=== PATIENT | female | born 1980 | race American Indian/Alaskan Native ===

== ENCOUNTER 2017-01-13 11:08 | Emergency (ER) | payer OTHER ==
[2017-01-13 11:11] VITALS: RESP 18; TEMP 98.5; O2SAT 100
--- NOTE | 2017-01-13 11:14 | ED PDOC ---
HPI: Abdomen Time Seen by Provider: 01/13/17 11:13 Chief Complaint (Provider): abdominal pain History Per: Patient Additional Complaint(s): 36-year-old female presents to emergency department for evaluation of right flank pain radiating to right lower quadrant 1.5 weeks. Patient was seen by [facility] doctor today and sent to ED for further evaluation. Patient states pain does occasionally radiate down her right leg posteriorly. She states that she has taken Aleve and Motrin in the past week which has helped the pain. Patient denies any dysuria or hematuria, no nausea, vomiting, diarrhea or constipation. Patient denies any vaginal discharge or vaginal bleeding and she denies any concern for STDs. Patient states she had full battery of STD testing done at the end of November at clinic. Patient rates current pain as 6/10. No fever or chills. Past Medical History Reviewed: Historical Data, Nursing Documentation, Vital Signs Vital Signs: Last Vital Signs Temp 98.5 F 01/13/17 11:10 Pulse 65 01/13/17 11:10 Resp 18 01/13/17 11:10 BP 127/70 01/13/17 11:10 Pulse Ox 100 01/13/17 15:07 - Medical History PMH: No Chronic Diseases - Surgical History Other surgeries: left knee surgery - Family History Family History: States: No Known Family Hx - Living Arrangements Living Arrangements: With Family - Social History Current smoker - smoking cessation education provided: No Alcohol: None Drugs: Denies - Home Medications Home Medications: Ambulatory Orders Medication Instructions Recorded Naproxen [Naprosyn] 500 mg PO BID #20 tab 01/13/17 - Allergies Allergies/Adverse Reactions: Allergies Allergy/AdvReac Type Severity Reaction Status Date / Time No Known Allergies Allergy Verified 01/13/17 11:19 Review of Systems ROS Statement: Except As Marked, All Systems Reviewed And Found Negative Constitutional: Negative for: Fever, Chills Cardiovascular: Negative for: Chest Pain Respiratory: Negative for: Cough Gastrointestinal: Positive for: Abdominal Pain (right lower quadrant). Negative for: Nausea, Vomiting Genitourinary Female: Positive for: Pelvic Pain (right side). Negative for: Dysuria, Frequency, Incontinence, Hematuria, Vaginal Discharge, Vaginal Bleeding Musculoskeletal: Positive for: Back Pain (right flank) Physical Exam - Reviewed Nursing Documentation Reviewed: Yes Vital Signs Reviewed: Yes - Physical Exam Appears: Positive for: Well, Non-toxic, No Acute Distress Skin: Negative for: Rash Eye Exam: Positive for: Normal appearance, EOMI, PERRL Cardiovascular/Chest: Positive for: Regular Rate, Rhythm Respiratory: Positive for: Normal Breath Sounds Gastrointestinal/Abdominal: Positive for: Tenderness (mild tenderness right pelvic region with likely palpable fibroids, ne rebound or guarding) Back: Positive for: R CVA Tenderness (mild). Negative for: L CVA Tenderness, Vertebral Tenderness Extremity: Positive for: Normal ROM, Other (negative bilateral straight leg raise) Neurologic/Psych: Positive for: Alert, Oriented - Laboratory Results Result Diagrams: 01/13/17 11:38 01/13/17 11:38 Urine POC: Negative Urine dip results: Negative for: Leukocyte Esterase, Blood, Nitrate, Ketones, Glucose, Bilirubin, Protein - ECG O2 Sat by Pulse Oximetry: 100 Pulse Ox Interpretation: Normal - Other Rad Pelvis US X-Ray: Read By Radiologist X-Ray Interpretation: see below Renal US X-Ray: Read By Radiologist X-Ray Interpretation: no acute finding Medical Decision Making Medical Decision Makin36 year old female with right flank pain and right lower quadrant abdominal pain , sent by clinic. Plan: Urine test Urine dip CBC CMP Renal US Pelvic US IVF IV toradol Pelvis US: IMPRESSION: Heterogeneous appearance of the uterus with evidence of multiple probable uterine fibroids. Largest presumed fibroid measures approximately 9 cm appears pedunculated and extends into the right adnexal region. Evidence of bilateral ovarian cysts measuring up to 5.0 cm. The endometrium is not visualized. Renal US: no acute finding 3:00 pm: patient feels better but still has some pain rated as 5/10, additional 15 mg IV toradol given which provided more adequate pain relief. Patient aware of all diagnostic testing results, all questions answered. I spoke with Dr. Tang, resident at clinic who states that she was able to arrange follow up appt for patient for January 21 and women[facility] clinic. Will d/c with naprosyn for pain control. Patient was advised to take meds as directed as needed for pain and is aware she can return to ED any time if acutely worse, otherwise she was advised to follow up as scheduled with clinic next week. Disposition - Clinical Impression Clinical Impression: Fibroids, Ovarian cyst - Patient ED Disposition Is Patient to be Admitted: No Counseled Patient/Family Regarding: Studies Performed, Diagnosis, Need For Followup, Rx Given - Disposition Referrals: [facility] [Outside] Disposition: Routine/Home Disposition Time: 15:04 Condition: STABLE Additional Instructions: Take prescription meds as directed as needed for pain. Follow-up as scheduled next week with women's clinic. Prescriptions: Naproxen [Naprosyn] 500 mg PO BID #20 tab Instructions: Ovarian Cyst (ED), Uterine Fibroids (ED) Forms: [facility] ED School/Work Excuse Results - Lab Results Lab Results: 01/13/17 01/13/17 11:38 11:38 WBC 4.6 L RBC 4.19 Hgb 10.7 L Hct 33.8 L MCV 80.5 L MCH 25.5 L MCHC 31.7 L RDW 17.3 H Plt Count 236 MPV 7.6 Neut % (Auto) 51.3 Lymph % (Auto) 30.1 [place] % (Auto) 15.8 H Eos % (Auto) 2.4 Baso % (Auto) 0.4 Neut # 2.3 Lymph # 1.4 [place] # 0.7 Eos # 0.1 Baso # 0.0 Sodium 139 Potassium 3.7 Chloride 105 Carbon Dioxide 25 Anion Gap 13 BUN 8 Creatinine 0.8 Est GFR ( Amer) > 60 Est GFR (Non-Af Amer) > 60 Random Glucose 91 Calcium 9.0 Total Bilirubin 0.2 AST 27 ALT 25 Alkaline Phosphatase 39 Total Protein 7.2 Albumin 4.0 Globulin 3.2 Albumin/Globulin Ratio 1.3
[2017-01-13] MEDS ORDERED: Sodium Chloride 0.9% 1,000 ML IV STA (11:23)
[2017-01-13 11:49] LABS: BASO % 0.4 % (0.0-2.0); EOS # 0.1 K/uL (0.0-0.7); EOS % 2.4 % (0.0-4.0); HEMATOCRIT 33.8 % (34.0-47.0); LYMPH # 1.4 K/uL (1.0-4.3); LYMPH % 30.1 % (20.0-40.0); MEAN CELL VOLUME 80.5 fl (81.0-99.0); MEAN CORPUSCULAR HEMOGLOBIN 25.5 pg (27.0-31.0); MEAN CORPUSCULAR HGB CONC 31.7 g/dL (33.0-37.0); MEAN PLATELET VOLUME 7.6 fl (7.2-11.7); MONO # 0.7 K/uL (0.0-0.8); MONO % 15.8 % (0.0-10.0); NEUT # 2.3 K/uL (1.8-7.0); NEUT % 51.3 % (50.0-75.0); NRBC % 0.2 % (0.0-0.0); RED CELL DISTRIBUTION WIDTH 17.3 % (11.5-14.5); WHITE BLOOD COUNT 4.6 K/uL (4.8-10.8)
[2017-01-13 12:08] LABS: ALB/GLOB RATIO 1.3 (1.0-2.1); ALKALINE PHOSPHATASE 39 U/L (38-126); ALT/SGPT 25 U/L (9-52); AST/SGOT 27 U/L (14-36); BILIRUBIN,TOTAL 0.2 mg/dl (0.2-1.3); BLOOD UREA NITROGEN 8 mg/dl (7-17); CARBON DIOXIDE 25 mmol/L (22-30); CHLORIDE 105 mmol/L (98-107); GFR AFRICAN-AMERICAN > 60; GLUCOSE,RANDOM 91 mg/dL (65-105); POTASSIUM 3.7 MMOL/L (3.6-5.0); SODIUM 139 mmol/l (132-148); TOTAL PROTEIN 7.2 G/DL (6.3-8.2)
--- NOTE | 2017-01-13 14:22 | US ---
HISTORY: pelvic pain, assess for fibroid COMPARISON: None available. TECHNIQUE: Transabdominal pelvic ultrasound FINDINGS: UTERUS: Measures approximately 13.5 x 7.1 x 9.7 cm. Anteverted. Heterogeneous uterine echotexture. Numerous probable uterine fibroids. Fibroids identified measure maximally approximately 3.5 cm, 3.1 cm, 3.4 cm, and an additional pedunculated probable fibroid extending into the right adnexal region measures approximately 9.0 x 7.6 x 7.1 cm. ENDOMETRIUM: Not visualized, presumably obscured by multiple fibroids. CERVIX: No cervical abnormality identified. RIGHT OVARY: Measures 10.6 x 4.2 x 9.2 cm. Blood flow is demonstrated. Two probable anechoic avascular lesions compatible with cysts measuring approximately 4.7 cm and 5 cm. LEFT OVARY: Measures 3.8 x 2.2 x 3.1 cm. Blood flow is demonstrated. Avascular anechoic lesion compatible with a cyst measures approximately 2.6 cm. FREE FLUID: No significant free fluid noted. OTHER FINDINGS: None. IMPRESSION: Heterogeneous appearance of the uterus with evidence of multiple probable uterine fibroids. Largest presumed fibroid measures approximately 9 cm appears pedunculated and extends into the right adnexal region. Evidence of bilateral ovarian cysts measuring up to 5.0 cm. The endometrium is not visualized.
--- NOTE | 2017-01-13 14:24 | US ---
PROCEDURE: Ultrasound of the Kidneys HISTORY: right side flank pain COMPARISON: None available. TECHNIQUE: Sonogram of the kidneys. FINDINGS: RIGHT KIDNEY: Measures: 9.9 x 4.6 x 5.3 cm. No obstructing calculus, hydronephrosis, or renal cyst identified. LEFT KIDNEY: Measures: 9.6 x 5.1 x 5.0 cm. No obstructing calculus, hydronephrosis, or renal cyst identified. OTHER FINDINGS: None. IMPRESSION: Unremarkable renal sonogram as above.
[2017-01-13 15:33] VITALS: BP 134/89; PULSE 78
== END 2017-01-13 15:25 | disposition home or self-care (01) ==
LOC: H.ER 11:08
DX: N83.201 Unspecified ovarian cyst, right side (principal); D25.9 Leiomyoma of uterus, unspecified; R10.2 Pelvic and perineal pain

== ENCOUNTER 2017-04-27 06:58 | Inpatient (IN) | payer OTHER ==
[2017-04-22 11:50] VITALS: BMI 31.2
[2017-04-27] MEDS ORDERED: Lactated Ringer's 1,000 ML IV ONE ×5 (07:00→11:30)
[2017-04-27] MEDS ORDERED: Propofol 10 mg/ml Inj (20 ML) ONE (07:07)
[2017-04-27] MEDS ORDERED: Succinylcholine 200 mg/10 ml Inj IV ONE (07:08)
[2017-04-27] MEDS ORDERED: ePHEDrine 50 mg/ml Inj ONE (07:08)
[2017-04-27] MEDS ORDERED: Rocuronium 10 mg/ml (5 ml) ONE ×2 (07:08→09:21)
[2017-04-27] MEDS ORDERED: Lidocaine 2% MPF (5 ml) Inj ONE (07:14)
[2017-04-27] MEDS ORDERED: ceFAZolin 2 GM in Sodium Chloride 0.9% 100 ML IVPB ONE ×3 (07:16→21:00)
--- NOTE | 2017-04-27 07:25 | CP.PCM.HP ---
Addendum entered and electronically signed by Elizabeth Christina MD 04/27/17 08:01 : Correction: Procedure that will be preformed today is Abdominal Myomectomy and Cystectomy Original Note: History of Present Illness - History of Present Illness History of Present Illness: 36 y/o female with history of uterine fibroid and anemia is here today for an abdominal myomectomy. Patient has been NPO since 9pm last night, has not taken any medications since then. - Patients largest fibroid on MRI shows 7.7 x 11.8 x 9.3 - Second largest is 5.2 cm - Third largest is 5.1cm - Patient also has a history of ovarian cysts - Risks and benefits have been discussed with the patient. Patient was seen in the clinic and consent has been signed. Patient has been given the opportunity to ask all questions and they have been answered. - Patient denies any chest pain, SPB, dizziness, nausea, vomiting. Patient medically cleared for surgery. Present on Admission - Present on Admission Any Indicators Present on Admission: No Past Patient History - Past Medical History & Family History Past Medical History?: Yes - Past Social History Smoking Status: Never Smoked - CARDIAC Hx Cardiac Disorders: No - PULMONARY Hx Respiratory Disorders: No - NEUROLOGICAL Hx Neurological Disorder: No - HEENT Hx HEENT Problems: No - RENAL Hx Chronic Kidney Disease: No - ENDOCRINE/METABOLIC Hx Endocrine Disorders: No - HEMATOLOGICAL/ONCOLOGICAL Hx Blood Disorders: Yes Hx Anemia: Yes - INTEGUMENTARY Hx Dermatological Problems: No - MUSCULOSKELETAL/RHEUMATOLOGICAL Hx Musculoskeletal Disorders: No - GASTROINTESTINAL Hx Gastrointestinal Disorders: Yes Hx Gastroesophageal Reflux: Yes (GERD) - GENITOURINARY/GYNECOLOGICAL Hx Genitourinary Disorders: No - PSYCHIATRIC Hx Psychophysiologic Disorder: No Hx Substance Use: No - SURGICAL HISTORY Hx Surgeries: Yes Hx Arthroscopy: Yes (LEFT KNEE) - ANESTHESIA Hx Anesthesia: Yes Hx Anesthesia Reactions: No Hx Malignant Hyperthermia: No Has any member of the family had a problem w/ anesthesia?: No Meds Allergies/Adverse Reactions: Allergies Allergy/AdvReac Type Severity Reaction Status Date / Time perfume Allergy ITCHING Verified 04/27/17 06:26 Physical Exam - Head Exam Head Exam: NORMAL INSPECTION - Eye Exam Eye Exam: Normal appearance - Neck Exam Neck exam: Positive for: Normal Inspection - Respiratory Exam Respiratory Exam: Clear to Auscultation Bilateral, NORMAL BREATHING PATTERN - Cardiovascular Exam Cardiovascular Exam: REGULAR RHYTHM, +S1, +S2 - GI/Abdominal Exam GI & Abdominal Exam: Normal Bowel Sounds, Soft - Extremities Exam Extremities exam: Positive for: normal inspection. Negative for: calf tenderness - Skin Skin Exam: Normal Color, Warm Results - Vital Signs Recent Vital Signs: Last Vital Signs Temp 98.1 F 04/27/17 06:51 Pulse 59 L 04/27/17 06:51 Resp 18 04/27/17 06:51 BP 119/92 H 04/27/17 06:51 Pulse Ox 100 04/27/17 06:51 Assessment & Plan - Assessment and Plan (Free Text) Assessment: 36 y/o female with history of uterine fibroid and anemia is here today for an abdominal myomectomy. 1) Uterine Fibroids: - HB: 11.5/ Hct:36.2 - NPO - Lactated Ringers 1L @ 125 - Ancef 2gm x 1 dose - Abdominal Myomectomy will be preformed this morning
[2017-04-27] MEDS ORDERED: Midazolam 2 MG/2 ML VIAL ONE (08:03)
[2017-04-27] MEDS ORDERED: Morphine 1 mg/ml preservative-free Inj(Duramorph) ONE (08:41)
[2017-04-27] MEDS ORDERED: Dexamethasone 4 mg/1 ml ONE (08:41)
[2017-04-27] MEDS ORDERED: Desflurane Inhalation Anesthetic Liq (240 ml) ONE (10:02)
[2017-04-27] MEDS ORDERED: Neostigmine Methylsulfate 3mg/3ml Syringe IV ONE (11:06)
[2017-04-27] MEDS ORDERED: Neostigmine Methylsulfate 2 MG/2 ML ML IV ONE (11:06)
[2017-04-27] MEDS ORDERED: Naloxone 0.4 mg/ml Inj (Adult) IVP PRN (11:44)
[2017-04-27] MEDS ORDERED: ceFAZolin 1 GM in Sodium Chloride 0.9% 100 ML IVPB ONE (11:45)
[2017-04-27] MEDS: HYDROmorphone 0.5 mg/0.5 ml ISec IVP PRN ×2 (11:52→12:10)
[2017-04-27 16:55] LABS: HEMATOCRIT 32.8 % (34.0-47.0); LYMPH # 0.4 K/uL (1.0-4.3); LYMPH % 1.8 % (20.0-40.0); MEAN CELL VOLUME 87.8 fl (81.0-99.0); MEAN CORPUSCULAR HEMOGLOBIN 27.3 pg (27.0-31.0); MONO % 4.7 % (0.0-10.0); NEUT # 20.7 K/uL (1.8-7.0); NEUT % 93.5 % (50.0-75.0); PLATELET COUNT 173 K/uL (130-400); RED CELL DISTRIBUTION WIDTH 14.8 % (11.5-14.5); WHITE BLOOD COUNT 22.2 K/uL (4.8-10.8)
[2017-04-27 18:04] LABS: NEUTROPHIL 86 % (42-75); TOTAL CELLS COUNTED 100
--- NOTE | 2017-04-27 18:42 | CP.PCM.PN ---
Subjective - Date & Time of Evaluation Date of Evaluation: 04/27/17 Time of Evaluation: 18:39 - Subjective Subjective: Post op note: Patient seen at bedside tolerated procedure well. Currently pain is well controlled with RESISTOR INSPECTOR pump but patient complains of nausea. Patient is having dry heaves but has not vomited anything. Denies any chest pain, sob, fever, chills. - Patient lost 2L of blood, but was transfused with patients own blood in the OR. Post op Hb: 10.2/ HCT: 32.8. Denies, Palpitations, dizziness. - SCD are in place, patient complains of dry mouth and is requesting some water. - Has not passed gas or bowl movement. - Patient is putting out adequate amount of urine: Clear in color. - 21 fibroids removed. Right ovarian cyst drained during surgery. Patient tolerated procedure well. Objective - Vital Signs/Intake and Output Vital Signs (last 24 hours): Temp Pulse Resp BP Pulse Ox 97.8 F 81 16 121/62 100 04/27/17 15:18 04/27/17 15:18 04/27/17 15:18 04/27/17 15:18 04/27/17 15:18 Intake and Output: 04/27/17 04/27/17 06:59 18:59 Intake Total 4000 Output Total 380 Balance 3620 - Medications Medications: Current Medications Hydromorphone HCl (Dilaudid 0.2 Mg/Ml Production Control Coordinating Clerk) 0 mg IV PRN PRN; Protocol PRN Reason: Pain, severe (8-10) Last Admin: 04/27/17 13:30 Dose: 0 mg Lactated Ringer's (Lactated Ringer's) 1,000 mls @ 125 mls/hr IV .Q8H CHARLI Cefazolin Sodium 2 gm/ Sodium (Chloride) 100 mls @ 100 mls/hr IVPB ONCE ONE Stop: 04/27/17 19:21 Cefazolin Sodium 2 gm/ Sodium (Chloride) 100 mls @ 100 mls/hr IVPB ONCE ONE Stop: 04/28/17 03:44 Metoclopramide HCl (Reglan) 10 mg IVP Q6 PRN PRN Reason: Nausea/Vomiting Naloxone HCl (Narcan) 0.1 mg IVP Q2M PRN PRN Reason: Shortness of Breath Ondansetron HCl (Zofran Inj) 4 mg IVP Q8 PRN PRN Reason: Nausea/Vomiting Last Admin: 04/27/17 17:26 Dose: 4 mg - Labs Labs: 04/27/17 16:00 - Head Exam Head Exam: NORMAL INSPECTION - Eye Exam Eye Exam: Normal appearance - ENT Exam ENT Exam: Mucous Membranes Moist, Normal Exam - Respiratory Exam Respiratory Exam: Clear to Ausculation Bilateral, NORMAL BREATHING PATTERN - Cardiovascular Exam Cardiovascular Exam: REGULAR RHYTHM, +S1, +S2 - GI/Abdominal Exam GI & Abdominal Exam: Soft, Hypoactive Bowel Sounds Additional comments: Dressing appears c/d/i. Not saturated with blood - Extremities Exam Extremities Exam: absent: Calf Tenderness Additional comments: SCD in place - Neurological Exam Neurological Exam: Alert, Awake, CN II-XII Intact, Oriented x3 - Psychiatric Exam Psychiatric exam: Normal Affect, Normal Mood - Skin Skin Exam: Normal Color, Warm Assessment and Plan - Assessment and Plan (Free Text) Assessment: 1) S/P abdominal myomectomy and right ovarian cystectomy -21 fibroids removed. Right ovarian cyst drained during surgery. Patient tolerated procedure well. - 2L blood lost, transfused with patients own blood - Initial HB: 11.5/ Hct:36.2. Post op : 10.2/ HCT: 32.8 - Repeat CBC and CMP in AM - NPO except for water - Lactated Ringers 1L @ 125 - Ancef 2gm x 1 dose (pre op), Ancef 2 gm x 1 dose @ 6:40, Ancef 2 gm x 1 dose will be given 8 hours later 2) Nausea - Zofran Q8 PRN - Regalan Q6 PRN 3) Leucocytosis most likely secondary to stress demargination from patient surgery - Afebrile - WBC: 22.2 - Neutrophils: 20.7 - Ancef 2 gm x 1 dose @ 6:40, Ancef 2 gm x 1 dose will be given 8 hours later - F/U morning CBC 4) DVT prophylaxis - SCD -Ambulate with assistance starting tomorrow
[2017-04-27] MEDS: Lactated Ringer's 1,000 ML IV SCH ×2 (20:27→20:29)
[2017-04-28] MEDS ORDERED: ceFAZolin 2 GM in Sodium Chloride 0.9% 100 ML IVPB ONE (02:45)
[2017-04-28] MEDS: Lactated Ringer's 1,000 ML IV SCH ×2 (05:15→15:48)
[2017-04-28 06:54] LABS: HEMATOCRIT 26.2 % (34.0-47.0); LYMPH # 1.2 K/uL (1.0-4.3); LYMPH % 7.1 % (20.0-40.0); MEAN CELL VOLUME 87.4 fl (81.0-99.0); MEAN CORPUSCULAR HEMOGLOBIN 27.8 pg (27.0-31.0); MEAN CORPUSCULAR HGB CONC 31.8 g/dL (33.0-37.0); MEAN PLATELET VOLUME 7.8 fl (7.2-11.7); MONO # 1.2 K/uL (0.0-0.8); MONO % 7.2 % (0.0-10.0); NEUT # 14.5 K/uL (1.8-7.0); NEUT % 85.7 % (50.0-75.0); RED CELL DISTRIBUTION WIDTH 14.1 % (11.5-14.5)
[2017-04-28 06:55] LABS: ALB/GLOB RATIO 1.1 (1.0-2.1); ALKALINE PHOSPHATASE 23 U/L (38-126); ALT/SGPT 22 U/L (9-52); AST/SGOT 18 U/L (14-36); BILIRUBIN,TOTAL 0.4 mg/dl (0.2-1.3); BLOOD UREA NITROGEN 9 mg/dl (7-17); CALCIUM 7.4 mg/dL (8.4-10.2); CARBON DIOXIDE 26 mmol/L (22-30); CHLORIDE 104 mmol/L (98-107); GFR AFRICAN-AMERICAN > 60; GLUCOSE,RANDOM 118 mg/dL (65-105); POTASSIUM 3.9 MMOL/L (3.6-5.0); SODIUM 136 mmol/l (132-148); TOTAL PROTEIN 4.8 G/DL (6.3-8.2)
[2017-04-28] MEDS ORDERED: Oxycodone/Acetaminophen 5/325 mg Tab PO PRN (08:43)
--- NOTE | 2017-04-28 09:01 | CP.PCM.PN ---
Subjective - Date & Time of Evaluation Date of Evaluation: 04/28/17 Time of Evaluation: 08:51 - Subjective Subjective: 36 YO F s/p abdominal myomectomy and right ovarian cystectomy seen at bedside this morning is doing well. - Nausea has resolved. Patient states the pain is well controlled with the medication. - Has been using incentive salinometer - Has been tolerating water intake well, will advance to clears today - Feels tired but denies any dizziness, palpitations. Objective - Vital Signs/Intake and Output Vital Signs (last 24 hours): Temp Pulse Resp BP Pulse Ox 99.6 F 77 20 111/58 L 100 04/28/17 05:00 04/28/17 05:00 04/28/17 06:00 04/28/17 05:00 04/28/17 05:00 Intake and Output: 04/28/17 04/28/17 06:59 18:59 Intake Total 2180 Output Total 705 Balance 1475 - Medications Medications: Current Medications Lactated Ringer's (Lactated Ringer's) 1,000 mls @ 125 mls/hr IV .Q8H RICHARD Last Admin: 04/28/17 05:15 Dose: 125 mls/hr Ibuprofen (Motrin Tab) 600 mg PO Q6 RICHARD Metoclopramide HCl (Reglan) 10 mg IVP Q6 PRN PRN Reason: Nausea/Vomiting Naloxone HCl (Narcan) 0.1 mg IVP Q2M PRN PRN Reason: Shortness of Breath Ondansetron HCl (Zofran Inj) 4 mg IVP Q8 PRN PRN Reason: Nausea/Vomiting Last Admin: 04/27/17 17:26 Dose: 4 mg Oxycodone/Acetaminophen (Percocet 5/325 Mg Tab) 1 tab PO Q4 PRN PRN Reason: Pain, moderate (4-7) Stop: 05/01/17 08:44 Oxycodone/Acetaminophen (Percocet 5/325 Mg Tab) 2 tab PO Q4 PRN PRN Reason: Pain, severe (8-10) Stop: 05/01/17 08:44 - Labs Labs: 04/28/17 06:20 04/28/17 06:20 - Constitutional Appears: In Acute Distress - Eye Exam Pupil Exam: NORMAL ACCOMODATION - Respiratory Exam Respiratory Exam: Clear to Ausculation Bilateral, NORMAL BREATHING PATTERN - Cardiovascular Exam Cardiovascular Exam: REGULAR RHYTHM, +S1 - GI/Abdominal Exam GI & Abdominal Exam: Soft, Hypoactive Bowel Sounds Additional comments: Dressing appears C/D/I - Extremities Exam Extremities Exam: Normal Capillary Refill - Neurological Exam Neurological Exam: Alert, Awake, Oriented x3 Assessment and Plan - Assessment and Plan (Free Text) Assessment: 1) S/P abdominal myomectomy and right ovarian cystectomy -21 fibroids removed. Right ovarian cyst drained during surgery. Patient tolerated procedure well. - 2L blood lost, transfused with patients own blood - Initial HB: 11.5/ Hct:36.2. Post op : 10.2/ HCT: 32.8 - Repeat CBC and CMP in AM - NPO except for water - Lactated Ringers 1L @ 125 - Ancef 2gm x 1 dose (pre op), Ancef 2 gm x 1 dose @ 6:40, Ancef 2 gm x 1 dose will be given 8 hours later - D/C GAME ROOM ATTENDANT pump. Motirn 600 mg Q6 Richard, Percocet for moderate to severe pain 2) Normocytic Normochromic Anemia - Most likely secondary to dilution effect will continue to monitor. - Initial HB: 11.5/ Hct:36.2. Post op : 10.2/ HCT: 32.8 - 04/28/17:Hb: 8.3 Hct:26.2 - Vital signs are stable 3) Nausea ( well controlled) - Zofran Q8 PRN - Regalan Q6 PRN 4) Leucocytosis most likely secondary to stress demargination from patient surgery ( trending down) - Afebrile - WBC trending down from 22 to 17 - Ancef 2 gm x 1 dose @ 6:40pm post op, Ancef 2 gm x 1 dose given 8 hours later 5) DVT prophylaxis - SCD -Ambulate out of bed
[2017-04-28 15:40] LABS: HEMATOCRIT 23.7 % (34.0-47.0); LYMPH # 1.1 K/uL (1.0-4.3); LYMPH % 6.8 % (20.0-40.0); MEAN CELL VOLUME 87.2 fl (81.0-99.0); MEAN CORPUSCULAR HEMOGLOBIN 27.4 pg (27.0-31.0); MEAN CORPUSCULAR HGB CONC 31.4 g/dL (33.0-37.0); MEAN PLATELET VOLUME 7.8 fl (7.2-11.7); MONO # 1.2 K/uL (0.0-0.8); MONO % 7.2 % (0.0-10.0); NEUT # 14.1 K/uL (1.8-7.0); WHITE BLOOD COUNT 16.4 K/uL (4.8-10.8)
[2017-04-29 06:15] LABS: BASO % 0.1 % (0.0-2.0); EOS # 0.1 K/uL (0.0-0.7); EOS % 0.5 % (0.0-4.0); HEMATOCRIT 20.7 % (34.0-47.0); LYMPH # 1.6 K/uL (1.0-4.3); LYMPH % 15.5 % (20.0-40.0); MEAN CELL VOLUME 87.5 fl (81.0-99.0); MEAN CORPUSCULAR HEMOGLOBIN 28.2 pg (27.0-31.0); MEAN CORPUSCULAR HGB CONC 32.2 g/dL (33.0-37.0); MEAN PLATELET VOLUME 8.2 fl (7.2-11.7); MONO # 0.9 K/uL (0.0-0.8); MONO % 8.3 % (0.0-10.0); NEUT % 75.6 % (50.0-75.0); NRBC % 0.1 % (0.0-0.0); WHITE BLOOD COUNT 10.6 K/uL (4.8-10.8)
--- NOTE | 2017-04-29 07:40 | CP.PCM.PN ---
Subjective - Date & Time of Evaluation Date of Evaluation: 04/29/17 Time of Evaluation: 07:40 - Subjective Subjective: APPAREL PATTERNMAKER NOTE: 36 YO F POD 2 seen at bedside. Slept over well night. Pain is minimal controlled with motrin. Patient states that her vaginal bleeding has been decreasing. Has been tolerating soft regular diet. Is able to ambulate with assistance and able to go to the bathroom. Urinating without difficulty, no blood noted in urine. Denies any dizziness or palpitations when getting out of bed or ambulating. Patient states she is a little "whoozy", but feeling well. - Hb has been decreasing over the last two days, vitals are stable and patient is asymptomatic. Will transfuse 2 units of PRBC. Objective - Vital Signs/Intake and Output Vital Signs (last 24 hours): Temp Pulse Resp BP Pulse Ox 99.6 F 102 H 20 110/58 L 99 04/29/17 03:58 04/29/17 03:58 04/29/17 03:58 04/29/17 03:58 04/29/17 03:58 - Medications Medications: Current Medications Ibuprofen (Motrin Tab) 600 mg PO Q6 RICHARD Last Admin: 04/29/17 03:52 Dose: 600 mg Metoclopramide HCl (Reglan) 10 mg IVP Q6 PRN PRN Reason: Nausea/Vomiting Naloxone HCl (Narcan) 0.1 mg IVP Q2M PRN PRN Reason: Shortness of Breath Ondansetron HCl (Zofran Inj) 4 mg IVP Q8 PRN PRN Reason: Nausea/Vomiting Last Admin: 04/28/17 09:12 Dose: 4 mg Oxycodone/Acetaminophen (Percocet 5/325 Mg Tab) 1 tab PO Q4 PRN PRN Reason: Pain, moderate (4-7) Stop: 05/01/17 08:44 Oxycodone/Acetaminophen (Percocet 5/325 Mg Tab) 2 tab PO Q4 PRN PRN Reason: Pain, severe (8-10) Stop: 05/01/17 08:44 - Labs Labs: 04/29/17 05:10 04/28/17 06:20 - Constitutional Appears: No Acute Distress - Head Exam Head Exam: ATRAUMATIC, NORMAL INSPECTION, NORMOCEPHALIC - Eye Exam Eye Exam: Normal appearance - ENT Exam ENT Exam: Mucous Membranes Moist - Respiratory Exam Respiratory Exam: Clear to Ausculation Bilateral, NORMAL BREATHING PATTERN. absent: Rales, Rhonchi, Wheezes - Cardiovascular Exam Cardiovascular Exam: REGULAR RHYTHM, +S1, +S2 - GI/Abdominal Exam GI & Abdominal Exam: Soft, Tenderness (slight lower abdominal tenderss), Normal Bowel Sounds Additional comments: Abdominal incision site appears C/D/I - Extremities Exam Extremities Exam: Normal Inspection. absent: Tenderness - Neurological Exam Neurological Exam: Alert, Awake, Oriented x3 - Skin Additional comments: Incisiion site appears C/D/I Assessment and Plan - Assessment and Plan (Free Text) Assessment: 1) S/P abdominal myomectomy and right ovarian cystectomy -21 fibroids removed. Right ovarian cyst drained during surgery. Patient tolerated procedure well. - 2L blood lost, transfused with patients own blood - Lactated Ringers 1L @ 125 - Ancef 2gm x 1 dose (pre op), Ancef 2 gm x 1 dose @ 6:40, Ancef 2 gm x 1 dose will be given 8 hours later -Motirn 600 mg Q6 Richard, Percocet for moderate to severe pain 2) Normocytic Normochromic Anemia - Most likely secondary to dilution effect will continue to monitor. - Initial HB: 11.5/ Hct:36.2. Post op : 10.2/ HCT: 32.8 - Morning Hb:6.7 Vital signs stable - Consent signed. Patient transfused with 2 Units PRBC - Follow up with 7 pm , postransfusion CBC - Follow up w/ CBC in the morning. 3) Leucocytosis (Resolved) - Afebrile, intially most likely secondary to stress demargination - WBC trending down from 22 to 10.6 - Ancef 2 gm x 1 dose @ 6:40pm post op, Ancef 2 gm x 1 dose given 8 hours later 4) DVT prophylaxis - SCD -Ambulate out of bed
[2017-04-29] MEDS: Oxycodone/Acetaminophen 5/325 mg Tab PO PRN (18:17)
[2017-04-29 20:24] LABS: BASO % 0.2 % (0.0-2.0); EOS # 0.1 K/uL (0.0-0.7); EOS % 1.2 % (0.0-4.0); HEMATOCRIT 24.8 % (34.0-47.0); LYMPH # 2.3 K/uL (1.0-4.3); LYMPH % 20.5 % (20.0-40.0); MEAN CELL VOLUME 85.6 fl (81.0-99.0); MEAN CORPUSCULAR HGB CONC 32.7 g/dL (33.0-37.0); MEAN PLATELET VOLUME 7.7 fl (7.2-11.7); MONO # 0.9 K/uL (0.0-0.8); MONO % 7.7 % (0.0-10.0); NEUT # 7.8 K/uL (1.8-7.0); NEUT % 70.4 % (50.0-75.0); RED CELL DISTRIBUTION WIDTH 15.6 % (11.5-14.5)
[2017-04-30 06:04] VITALS: TEMP 98.2; O2SAT 100
[2017-04-30 07:20] LABS: BASO % 0.4 % (0.0-2.0); EOS # 0.3 K/uL (0.0-0.7); EOS % 3.4 % (0.0-4.0); HEMATOCRIT 25.1 % (34.0-47.0); LYMPH # 1.7 K/uL (1.0-4.3); LYMPH % 20.2 % (20.0-40.0); MEAN CELL VOLUME 86.5 fl (81.0-99.0); MEAN CORPUSCULAR HEMOGLOBIN 28.2 pg (27.0-31.0); MEAN CORPUSCULAR HGB CONC 32.6 g/dL (33.0-37.0); MEAN PLATELET VOLUME 7.7 fl (7.2-11.7); MONO # 0.6 K/uL (0.0-0.8); MONO % 7.7 % (0.0-10.0); NEUT # 5.6 K/uL (1.8-7.0); NEUT % 68.3 % (50.0-75.0); NRBC % 0.1 % (0.0-0.0); RED CELL DISTRIBUTION WIDTH 15.4 % (11.5-14.5); WHITE BLOOD COUNT 8.2 K/uL (4.8-10.8)
[2017-04-30 08:22] LABS: ALB/GLOB RATIO 1.1 (1.0-2.1); ALKALINE PHOSPHATASE 29 U/L (38-126); ALT/SGPT 20 U/L (9-52); AST/SGOT 17 U/L (14-36); BILIRUBIN,TOTAL 0.4 mg/dl (0.2-1.3); BLOOD UREA NITROGEN 7 mg/dl (7-17); CALCIUM 7.7 mg/dL (8.4-10.2); CARBON DIOXIDE 28 mmol/L (22-30); CHLORIDE 105 mmol/L (98-107); GFR AFRICAN-AMERICAN > 60; GLUCOSE,RANDOM 97 mg/dL (65-105); POTASSIUM 3.7 MMOL/L (3.6-5.0); SODIUM 141 mmol/l (132-148); TOTAL PROTEIN 4.9 G/DL (6.3-8.2)
[2017-04-30 08:39] VITALS: BP 122/67; PULSE 81; RESP 18
[2017-04-30] MEDS: Oxycodone/Acetaminophen 5/325 mg Tab PO PRN (12:25)
--- NOTE | 2017-04-30 17:53 | CP.PCM.PN ---
Subjective - Date & Time of Evaluation Date of Evaluation: 04/30/17 Time of Evaluation: 09:30 - Subjective Subjective: Patient seen and examined this am. Patient without complaints today. Patient ambulating well and passing flatus. Tolerating regular diet. Patient states pain well controlled with Motrin 600mg. Patient urinating well. Objective - Vital Signs/Intake and Output Vital Signs (last 24 hours): Temp Pulse Resp BP Pulse Ox 98.2 F 81 18 122/67 100 04/30/17 08:38 04/30/17 08:38 04/30/17 08:38 04/30/17 08:38 04/30/17 08:38 Intake and Output: 04/30/17 04/30/17 06:59 18:59 Intake Total 240 Balance 240 - Labs Labs: 04/30/17 06:55 04/30/17 06:55 - Constitutional Appears: Well, No Acute Distress - Head Exam Head Exam: ATRAUMATIC, NORMAL INSPECTION - Respiratory Exam Respiratory Exam: NORMAL BREATHING PATTERN - Cardiovascular Exam Cardiovascular Exam: REGULAR RHYTHM, +S1, +S2 - GI/Abdominal Exam GI & Abdominal Exam: Normal Bowel Sounds Additional comments: Incision clean and dry, no erythema or drainage noted. [place] in place - Extremities Exam Extremities Exam: Full ROM, Normal Capillary Refill, Normal Inspection, Pedal Edema. absent: Calf Tenderness, Joint Swelling, Tenderness - Neurological Exam Neurological Exam: Alert, Awake, Oriented x3 Assessment and Plan (1) Fibroids Status: Acute (2) Ovarian cyst Status: Acute - Assessment and Plan (Free Text) Assessment: Patient POD#3 s/p Abdominal Myomectomy and Right ovarian cystectomy Plan: Patient for discharge home today Rx given for Motrin and Percocet Patient also informed to take Calcium and Colace daily and Iron BID Patient for follow up in the office on Friday 05/04 at 3pm for staple removal
--- NOTE | 2017-05-02 15:51 | CP.PCM.DIS ---
Provider - Provider Date of Admission: 04/27/17 11:47 Attending physician: Lissette Spence MD Primary care physician: Carolina Agustin MD Time Spent in preparation of Discharge (in minutes): 30 Diagnosis - Discharge Diagnosis (1) S/P myomectomy Status: Acute Hospital Course - Lab Results Lab Results: Most Recent Lab Values WBC 8.2 K/uL (4.8-10.8) 04/30/17 06:55 RBC 2.91 Mil/uL (3.80-5.20) L 04/30/17 06:55 Hgb 8.2 g/dL (12.0-16.0) L 04/30/17 06:55 Hct 25.1 % (34.0-47.0) L 04/30/17 06:55 MCV 86.5 fl (81.0-99.0) 04/30/17 06:55 MCH 28.2 pg (27.0-31.0) 04/30/17 06:55 MCHC 32.6 g/dL (33.0-37.0) L 04/30/17 06:55 RDW 15.4 % (11.5-14.5) H 04/30/17 06:55 Plt Count 135 K/uL (130-400) 04/30/17 06:55 MPV 7.7 fl (7.2-11.7) 04/30/17 06:55 Neut % (Auto) 68.3 % (50.0-75.0) 04/30/17 06:55 Lymph % (Auto) 20.2 % (20.0-40.0) 04/30/17 06:55 [place] % (Auto) 7.7 % (0.0-10.0) 04/30/17 06:55 Eos % (Auto) 3.4 % (0.0-4.0) 04/30/17 06:55 Baso % (Auto) 0.4 % (0.0-2.0) 04/30/17 06:55 Neut # 5.6 K/uL (1.8-7.0) 04/30/17 06:55 Lymph # 1.7 K/uL (1.0-4.3) 04/30/17 06:55 [place] # 0.6 K/uL (0.0-0.8) 04/30/17 06:55 Eos # 0.3 K/uL (0.0-0.7) 04/30/17 06:55 Baso # 0.0 K/uL (0.0-0.2) 04/30/17 06:55 Neutrophils % (Manual) 86 % (42-75) H 04/27/17 16:00 Band Neutrophils % 5 % (0-2) H 04/27/17 16:00 Lymphocytes % (Manual) 3 % (20-50) L 04/27/17 16:00 Monocytes % (Manual) 6 % (0-10) 04/27/17 16:00 Platelet Estimate Normal (NORMAL) 04/27/17 16:00 Hypochromasia (manual) Slight 04/27/17 16:00 Poikilocytosis (manual Slight 04/27/17 16:00 Anisocytosis (manual) Moderate 04/27/17 16:00 Sodium 141 mmol/l (132-148) 04/30/17 06:55 Potassium 3.7 MMOL/L (3.6-5.0) 04/30/17 06:55 Chloride 105 mmol/L (98-107) 04/30/17 06:55 Carbon Dioxide 28 mmol/L (22-30) 04/30/17 06:55 Anion Gap 11 (10-20) 04/30/17 06:55 BUN 7 mg/dl (7-17) 04/30/17 06:55 Creatinine 0.7 mg/dL (0.7-1.2) 04/30/17 06:55 Est GFR ( Amer) > 60 04/30/17 06:55 Est GFR (Non-Af Amer) > 60 04/30/17 06:55 Random Glucose 97 mg/dL (65-105) 04/30/17 06:55 Calcium 7.7 mg/dL (8.4-10.2) L 04/30/17 06:55 Total Bilirubin 0.4 mg/dl (0.2-1.3) 04/30/17 06:55 AST 17 U/L (14-36) 04/30/17 06:55 ALT 20 U/L (9-52) 04/30/17 06:55 Alkaline Phosphatase 29 U/L (38-126) L D 04/30/17 06:55 Total Protein 4.9 G/DL (6.3-8.2) L 04/30/17 06:55 Albumin 2.6 g/dL (3.5-5.0) L 04/30/17 06:55 Globulin 2.3 gm/dL (2.2-3.9) 04/30/17 06:55 Albumin/Globulin Ratio 1.1 (1.0-2.1) 04/30/17 06:55 Blood Type A NEGATIVE 04/27/17 09:12 Antibody Screen Negative 04/27/17 09:12 Crossmatch See Detail 04/27/17 09:12 BBK History Checked Patient has bt 04/27/17 09:12 - Hospital Course Hospital Course: Patient is a 36 yo G0 with history of uterine fibroids, ovarian cysts, pelvic pain and menorrhagia. Patient with continued symptoms despite treatment with progesterone only pills. Due to patients symptoms and desire to conceive in the future, the patient was advised to undergo surgical removal of the fibroids and ovarian cysts. - Abdominal myomectomy was preformed. Patient tolerated the procedure well. 21 Fibroids were removed. Patient lost 2 L of blood during the surgery. Patients own blood of 750 ml was given back to her, during the surgery. - Patients pre op Hb was 11.5. Post op Hb was 10.2. Patient's hemoglobin was noted to drop to 6.7, however patient was hemodynamically stable and remained asymptomatic. Patient was consented and transfused with 2 units of PRBC. Hb remained stable s/p transfusion at 8.2 - Patient's pain was controlled with PO medication, has been tolerating regular diet w/o any nausea or vomiting. Patient is able to ambulate out of bed and urinating freely without any problems. Vaginal bleeding has been subsiding. Incision site looks C/D/ I. - Patient is being discharged home with Motrin and percocet. Patient has been infomed to take calcium and colace daily and iron BID. - PAtient for follow up in the office on Friday 05/04 at 3pm for staple removal. Discharge Exam - Head Exam Head Exam: ATRAUMATIC, NORMAL INSPECTION - Eye Exam Eye Exam: Normal appearance Pupil Exam: NORMAL ACCOMODATION - Respiratory Exam Respiratory Exam: Clear to PA & Lateral, NORMAL BREATHING PATTERN - Cardiovascular Exam Cardiovascular Exam: REGULAR RHYTHM, +S1, +S2 - GI/Abdominal Exam GI & Abdominal Exam: Normal Bowel Sounds, Soft, Tenderness (slight tenderness ) Additional comments: [place] noted. Incission site looks C/D/I. - Extremities Exam Extremities exam: normal inspection Discharge Plan - Follow Up Plan Condition: GOOD Disposition: HOME/ ROUTINE Instructions: Ibuprofen (By mouth), Oxycodone/Acetaminophen (By mouth), Iron Rich Diet (GEN), Myomectomy (DC) Additional Instructions: follow up with dr spence on wednesday05/04/17 at 3pm Referrals: Carolina Agustin MD [Primary Care Provider] -
--- NOTE | 2017-05-03 17:43 | OP ---
PROCEDURE DATE: 04/27/2017 PREOPERATIVE DIAGNOSES: Enlarged fibroid uterus with menorrhagia, pelvic pain and large right ovarian cyst. POSTOPERATIVE DIAGNOSES: Enlarged fibroid uterus with menorrhagia, pelvic pain and large right ovarian cyst. PROCEDURE: Abdominal myomectomy with right ovarian cystectomy and removal of right paratubal cyst. SURGEON: Dr. Lissette Horvath NURSERY TEACHER: Dr. Jorge Gupta TYPE OF ANESTHESIA: General. FINDINGS: On bimanual exam, the patient had an enlarged fibroid uterus measuring approximately 18-week size. The uterus was freely mobile and anteverted with no adnexal masses palpable. Surgically, the patient had multiple fibroids, 3 large fibroids, the largest was approximately 12 cm and 18 smaller fibroids; 21 fibroids noted altogether. There was also an enlarged right ovarian cyst approx 5cm in size and a smaller paratubal cyst. IV FLUID INTAKE: 3000 mL of lactated Ringer's and 750 mL of blood via Cell Saver. ESTIMATED BLOOD LOSS: 2 liters. URINE OUTPUT: 200 mL, clear. COMPLICATIONS: None. PATHOLOGY: 21 uterine fibroids, right ovarian cyst wall, right ovarian cyst fluid and right paratubal cyst. CLOSURE: Marco. DESCRIPTION OF PROCEDURE: The patient was taken to the operating room where she was prepped and draped in the normal sterile fashion in dorsal supine position. After general anesthesia was found to be adequate, a Pfannenstiel skin incision was made with the scalpel and carried to the underlying fascia with the Bovie. The fascia was incised in the midline and the incision was carried laterally using the Bovie. The inferior aspect of the fascial incision was then grasped with Glenn clamps, elevated and the underlying rectus muscles were dissected off with the Bovie, then bluntly. Attention was then turned to the superior aspect of the fascial incision which in a similar fashion was dissected off with the Bovie, then bluntly. The rectus muscles were in the midline, the peritoneum was identified and tented up and entered with Metzenbaum scissors. This incision was then extended laterally, superiorly and inferiorly, paying close attention to the bladder. Next, the uterus was grasped and removed from the abdomen. The fundal fibroid was then identified. The tip of the cautery was used for cutting in a linear incision along the top of the fibroid until the fibroid fibers were seen. The edges of the myometrium were then grasped with Allis clamps, tented up and a hemostat was used to bluntly dissect around the fibroids following with blunt finger dissection. The fibroid was then easily and bluntly dissected out. Once dissection of the larger fibroid was complete and handed off to the scrub nurse, the defect was then closed using 0 Vicryl interrupted stitches and then a baseball stitch was then used to complete the closure. Following this, the other 20 fibroids were then removed in a similar fashion, cutting with the cautery and then blunt dissection. All defects were then closed using 0 Vicryl suture and following with a baseball stitch and good hemostasis was noted. All fibroids were handed off to the senior pharmacy technician to be sent for pathology. The uterus then seemed to be completely hemostatic after closure. Following this, attention was then turned to the right ovary, at which time an approximately 5 cm right ovarian cyst was noted. This was then drained of approximately 30 mL of clear fluid using an 18-gauge needle. This was handed off of the field. An incision was then made and the cyst wall was then removed. A running stitch was then used for closure of the ovarian wall using a 2-0 Vicryl suture and good hemostasis was noted. The Bovie was then used to also remove a right paratubal cyst. A 3 x 4 inch piece of Interceed was then placed over all incisions of the uterus and dampened with normal saline and this was placed over the right ovarian cyst closure as well and Surgicel was placed over the incision at the site of the removal of the larger uterine fibroid. Good hemostasis was again noted throughout after copious irrigation was performed. The uterus was returned to the abdomen. All laps were removed. The peritoneum was closed with 2-0 Vicryl in a running fashion and 3 horizontal mattress sutures were then placed for reapproximation of the rectus muscles. The fascia was then reapproximated using 0 Vicryl in a running fashion and good hemostasis was noted. Good hemostasis was also achieved on the subcutaneous fat layer using the Bovie and this layer was then closed with 3 interrupted stitches using a 3-0 plain suture. The skin was closed with marco. The patient tolerated the procedure well. Sponge, lap and needle counts were all correct. The patient was given Ancef 2 grams preoperatively and an additional dose was given postoperatively due to the increased blood loss. The patient was awakened from anesthesia and taken to recovery room in stable condition. She will be followed for her immediate postoperative care during her hospital stay. Due to the nature of this case, an preschool assistant teacher was requested. My preschool assistant teacher Dr. Jorge Gupta was present for the entire case and aided in entry through the abdominal cavity and provided great exposure to minimize blood loss. He assisted with dissection and removal of the fibroids and ovarian cysts and closure of all defects and the abdominal wall. His assistance was vital to performing this procedure. Lissette Horvath MD MTDD
== END 2017-04-30 14:00 | disposition home or self-care (01) | DRG 743 ==
LOC: H.OPSURG 06:58 → H.PEDS 11:47
PROVIDERS: ADMIT Obstetrics & Gynecology; ATTEND Obstetrics & Gynecology
PROC: 0UB00ZZ Excision of Right Ovary, Open Approach (ICD-10-PCS; 2017-04-27)
PROC: 0UB50ZZ Excision of Right Fallopian Tube, Open Approach (ICD-10-PCS; 2017-04-27)
PROC: 3E0P05Z Introduction of Adhesion Barrier into Female Reproductive, Open Approach (ICD-10-PCS; 2017-04-27)
PROC: 0UB90ZZ Excision of Uterus, Open Approach (ICD-10-PCS; 2017-04-27 07:45)
PROC: 30233N1 Transfusion of Nonautologous Red Blood Cells into Peripheral Vein, Percutaneous Approach (ICD-10-PCS; principal; 2017-04-29)
DX: D25.9 Leiomyoma of uterus, unspecified (principal); D64.9 Anemia, unspecified; N92.0 Excessive and frequent menstruation with regular cycle; N83.201 Unspecified ovarian cyst, right side; D72.829 Elevated white blood cell count, unspecified; N83.8 Other noninflammatory disorders of ovary, fallopian tube and broad ligament

== ENCOUNTER 2017-08-13 13:25 | Emergency (ER) | payer OTHER, BC ==
[2017-08-13 13:26] VITALS: BMI 31.2
[2017-08-13 13:32] VITALS: BP 131/85; PULSE 117; RESP 18; TEMP 98; O2SAT 99
--- NOTE | 2017-08-13 14:19 | ED PDOC ---
HPI: General Adult Time Seen by Provider: 08/13/17 14:11 Chief Complaint (Nursing): Medical Clearance Chief Complaint (Provider): Medical Clearance History Per: Patient History/Exam Limitations: no limitations Additional Complaint(s): 36 y/o female presents to the ER for evaluation of carbon monoxide exposure, discovered today 1 hour prior to arrival. Patient states she was located on the first floor. Denies having any symptoms. PMD: Provider TBD Past Medical History Reviewed: Historical Data, Nursing Documentation, Vital Signs Vital Signs: Last Vital Signs Temp 98.0 F 08/13/17 13:31 Pulse 117 H 08/13/17 13:31 Resp 18 08/13/17 13:31 BP 131/85 08/13/17 13:31 Pulse Ox 99 08/13/17 14:19 - Medical History PMH: Anemia Denies: Chronic Kidney Disease - Family History Family History: States: Unknown Family Hx - Home Medications Home Medications: Ambulatory Orders Medication Instructions Recorded Ferrous Sulfate [Feosol] 324 mg PO DAILY 04/27/17 Ibuprofen [Motrin] 400 mg PO Q6 PRN 04/27/17 Micro Orthinon 1 tab PO DAILY 04/27/17 - Allergies Allergies/Adverse Reactions: Allergies Allergy/AdvReac Type Severity Reaction Status Date / Time perfume Allergy ITCHING Verified 04/27/17 06:26 Review of Systems ROS Statement: Except As Marked, All Systems Reviewed And Found Negative Respiratory: Negative for: Shortness of Breath Gastrointestinal: Negative for: Nausea Physical Exam - Reviewed Nursing Documentation Reviewed: Yes Vital Signs Reviewed: Yes - Physical Exam Appears: Positive for: Non-toxic, No Acute Distress Head Exam: Positive for: ATRAUMATIC, NORMAL INSPECTION, NORMOCEPHALIC Skin: Positive for: Normal Color, Warm, Dry Eye Exam: Positive for: EOMI, Normal appearance, PERRL Neck: Positive for: Normal, Painless ROM, Supple Cardiovascular/Chest: Positive for: Regular Rate, Rhythm. Negative for: Murmur Respiratory: Positive for: Normal Breath Sounds. Negative for: Accessory Muscle Use, Respiratory Distress Extremity: Positive for: Normal ROM. Negative for: Deformity Neurologic/Psych: Positive for: Alert, Oriented. Negative for: Motor/Sensory Deficits - ECG O2 Sat by Pulse Oximetry: 99 (RA) Pulse Ox Interpretation: Normal - Progress ED Course And Treament: Patient on 100% nonrebreather. Noted vgb CO <2 Medical Decision Making Medical Decision Making: Elevated CO noted at triage. Had received 100% rebreather [place] oxygen. Time: 13:54 Initial Plan: --VBG Scribe Attestation: Documented by Chantel Madison, acting as a scribe for Yenny Sarmiento PA-C Provider Scribe Attestation: All medical record entries made by the Scribe were at my direction and personally dictated by me. I have reviewed the chart and agree that the record accurately reflects my personal performance of the history, physical exam, medical decision making, and the department course for this patient. I have also personally directed, reviewed, and agree with the discharge instructions and disposition. Disposition - Clinical Impression Clinical Impression: Carbon monoxide exposure - Patient ED Disposition Is Patient to be Admitted: No - Disposition Disposition: Routine/Home Disposition Time: 14:50 Condition: FAIR Instructions: Carbon Monoxide Poisoning (ED) Forms: [facility] (Persian)
[2017-08-13 14:27] LABS: VENOUS BLOOD GAS BASE EXCESS 4.4 mmol/L (0.0-2.0); VENOUS BLOOD GAS PCO2 50 mmHg (40-60); VENOUS BLOOD GAS PO2 34 mm/Hg (30-55); VENOUS BLOOD PH 7.39 (7.32-7.43)
== END 2017-08-13 16:28 | disposition home or self-care (01) ==
LOC: H.ER 13:25
DX: T58.91XA Toxic effect of carbon monoxide from unspecified source, accidental (unintentional), initial encounter (principal); Y99.0 Civilian activity done for income or pay

== ENCOUNTER 2018-09-16 07:42 | Day surgery (SDC) | payer OTHER ==
[2018-09-16 08:28] VITALS: BMI 32.5
[2018-09-16] MEDS ORDERED: Propofol 10 mg/ml Inj (20 ML) ONE (10:10)
[2018-09-16] MEDS ORDERED: Midazolam 2 MG/2 ML VIAL ONE (10:10)
[2018-09-16 12:17] VITALS: RESP 18
[2018-09-16 12:31] VITALS: BP 125/80; PULSE 85; TEMP 98; O2SAT 100
== END 2018-09-16 12:43 | disposition home or self-care (01) ==
LOC: H.ENDO 07:42
PROVIDERS: ATTEND Internal Medicine Gastroenterology
DX: K22.8 Other specified diseases of esophagus (principal); K44.9 Diaphragmatic hernia without obstruction or gangrene; K31.89 Other diseases of stomach and duodenum; R12 Heartburn
CPT/HCPCS: 43239; 88305; J2001; J2250; J2704